=== PATIENT | female | born 1995 | race Two or more races ===

== ENCOUNTER 2024-03-26 09:07 | Emergency (ER) | payer MEDICAID, SELFPAY ==
[2024-03-26 09:54] VITALS: BP 115/80; PULSE 100; RESP 20; TEMP 39.2; O2SAT 97; BMI 39.4
[2024-03-26 10:28] VITALS: TEMP 39.2
[2024-03-26] MEDS: ACETAMINOPHEN 500 MG TABLET 1000 MG PO (10:28)
--- NOTE | 2024-03-26 11:25 | EDNOTE_ITS ---
<Statement entered by Mayda Diane MD - 04/01/24 17:56> As co-signing physician, I was present and available for consult prn. I concur with the plan and care as documented by the midlevel provider. ED Fever RME/HPI General Chief Complaint: Fever Stated Complaint: Fever, MATT, body aches, SOB, vomiting Time Seen by Provider: 03/26/24 09:33 Source: patient Arrival date/time: 03/26/24 09:07 This is a 28-year-old female who presented to the emergency department complaints of flulike symptoms. Complaint of fever, headache body aches vomiting. Patient did not attempt any interventions or take any OTC medications prior to ED visit. Patient denies any other associated symptoms or aggravating factors. No modifying factors, no radiation, no migration. Positive sick contacts at home. Mode of arrival: ambulatory Limitations: no limitations Related Data Previous Rx's ?Medication ?Instructions ?Recorded epinephrine 0.3 mg/0.3 mL 0.3 ml subcut .x1 PRN 07/07/23 injection, auto-injector (EpiPen hypersensitivity reaction #2 ea 2-Nitin) acetaminophen-caffeine 500 mg-65 1 tab PO Q6H PRN pain #30 tabs 01/07/24 mg tablet (Excedrin Tension Headache) acetaminophen 325 mg tablet 650 mg (2 x 325 mg) PO Q6H PRN 03/26/24 (Tylenol) fever or pain #30 tabs oseltamivir 75 mg capsule (Tamiflu) 75 mg PO BID 5 days #10 caps 03/26/24 Allergies Allergy/AdvReac Type Severity Reaction Status Date / Time hydromorphone Allergy Severe Anaphylaxis Verified 01/07/24 13:35 ketorolac Allergy Severe Anaphylaxis Verified 01/07/24 13:35 meperidine Allergy Severe Anaphylaxis Verified 01/07/24 13:35 Review of Systems Review of Systems Systems Reviewed: All systems reviewed, normal except as documented Narrative Review of Systems: Gen: + fever, no chills, no weight loss EYES: No discharge, no visual changes, no pain HEENT: No ear pain, +nasal congestion, no sore throat PULM: No shortness of breath, ++ough, no congestion CV: No chest pain, no dyspnea on exertion, no palpitations GI: No nausea, ++ vomiting, no diarrhea, no pain, no constipation : No frequency, no urgency,? no dysuria Musc/skel: No joint pain, no back pain Skin: No rash? Psyc: No hallucinations, no depression Heme/Lymph: No easy bleeding or bruising tendencies Neuro: No weakness, no headache Physical Exam Narrative Physical exam: General: 28y old female Sittiing in Exam table in no acute distress, answering questions appropriately HENT: normocephalic, atraumatic, EOMI, PERRLA, moist mucous membranes Chest: chest wall is nontender Cardiac: regular rate and rhythm, normal S1 and S2, no murmurs, rubs, or gallops, capillary refill ?2 seconds Pulmonary: clear to auscultation bilaterally, no wheezing, crackles, or rhonchi Abdominal: active bowel sounds, soft, nontender, nondistended Neuro: A&OX3, CN II-XII intact, sensation grossly intact bilaterally in UE and LE. Skin: no rashes, no ecchymosis Ext: no lower extremity edema General Limitations: no limitations General appearance: alert and in no apparent distress Head Head exam: atraumatic Eye Eye exam: Present normal appearance, PERRL and EOMI ENT ENT exam: Present normal exam, normal oropharynx and mucous membranes moist Neck Neck exam: Present normal inspection, full ROM and trachea midline Chest Chest inspection: Present normal inspection and symmetric chest wall rise Respiratory Respiratory exam: Present normal lung sounds bilaterally Cardiovascular Cardiovascular exam: Present regular rate, normal rhythm and normal heart sounds Abdominal Exam Abdominal exam: Present soft and normal bowel sounds; Absent distention, tenderness or guarding Extremities Exam Extremities exam: Present normal inspection and full ROM Back Exam Back exam: Present normal inspection and full ROM Neurological Exam Neurological exam: Present alert, oriented X3 and CN II-XII intact Psychiatric Psychiatric exam: Present normal affect and normal mood Skin Skin exam: Present warm, dry, intact and normal color ED Exam General Limitations: Present no limitations General appearance: Present alert and in no apparent distress Head Head exam: Present atraumatic Eye Eye exam: Present normal appearance, PERRL and EOMI ENT ENT exam: Present normal exam, normal oropharynx and mucous membranes moist Neck Neck exam: Present normal inspection, full ROM and trachea midline Chest Chest inspection: Present normal inspection and symmetric chest wall rise Respiratory Respiratory exam: Present normal lung sounds bilaterally Cardiovascular Cardiovascular exam: Present regular rate, normal rhythm and normal heart sounds Abdominal Exam Abdominal exam: Present soft and normal bowel sounds; Absent distention, tenderness or guarding Extremities Exam Extremities exam: Present normal inspection and full ROM Back Exam Back exam: Present normal inspection and full ROM Neurological Exam Neurological exam: Present alert, oriented X3 and CN II-XII intact Psychiatric Psychiatric exam: Present normal affect and normal mood Skin Skin exam: Present warm, dry, intact and normal color Course Quality Measures none Orders Category Date Time Status Bedside COVID-19 Antigen Test NOW Care 03/26/24 10:06 Completed Bedside Influenza A&B Antigen Test NOW Care 03/26/24 10:06 Completed Acetaminophen Tab [Tylenol ES Tab] Med 03/26/24 10:06 Discontinued 1,000 mg PO X1 ONE Vital Signs Vital signs: Vital Signs Temperature 102.5 F H 03/26/24 09:54 Pulse Rate 100 03/26/24 09:54 Respiratory Rate 20 03/26/24 09:54 Blood Pressure 115/80 03/26/24 09:54 Pulse Oximetry (%) 97 03/26/24 09:54 Oxygen Delivery Method Room Air 03/26/24 09:54 Fever MDM Narrative MDM Narrative:: Patient presents with symptoms and exam consistent with influenza. The patient is young, healthy, and is not a patient that is at high risk for developing influenza complications.? Patient is non-toxic appearing, appears to be well- hydrated and is breathing comfortably, without respiratory distress. Doubt pneumonia given lungs CTAB. Patient is appropriate for outpatient management with anti-pyretics and supportive care. Patient is comfortable with plan. Patient to follow up with PMD in 2 days. Strict return to ED precautions given. ?Patient verbalized understanding. Patient data External records reviewed:: [facility] previous records Clinical information provided by:: patient Social determinants that could affect healthcare access:: none Patient has the following chronic illnesses:: none How is presenting disease/condition affected by chronic disease/condition?: no chronic disease Evaluation data The following diagnostics were reviewed and interpreted by me:: lab results Lab and/or radiology exams considered but not ordered:: Considered x-ray however CTAB Interpretation Summary: +Influenza A Medications / Prescriptions Medications or Prescriptions considered but not ordered:: none Medication administrations:: Medication Administration History Discontinued Medications Acetaminophen (Acetaminophen 500 Mg Tablet) 1,000 mg PO X1 ONE Stop: 03/26/24 10:07 Last Admin: 03/26/24 10:28 Dose: 1,000 mg Documented By: ED all meds administered and effective Consultations Consultation(s) initiated? (list below): No Diagnosis Fever Differential Diagnosis: influenza Most likely diagnosis given after review of the tests above:: Influenza Admission Indicated Admission indicated?: not indicated Explain why admission is indicated or not indicated:: none Admission Request Was there a request for admission?: No Disposition Plan Disposition Plan: Discharge Discharge Attestation Discharge Attestation: The patient and all family members were given an opportunity to ask questions and understood the discharge instructions. Discharge instructions specifically effects, indications for sooner follow up or return to the emergency department, and the expected course of current diagnosis. Patient condition: Stable Discharge Plan Plan Patient Disposition: HOME (Self Care) Patient condition on transfer: Stable Prescriptions/Referrals Prescriptions/Med Rec: New acetaminophen [Tylenol] 325 mg tablet 650 mg PO Q6H PRN (Reason: fever or pain) Qty: 30 0RF oseltamivir [Tamiflu] 75 mg capsule 75 mg PO BID 5 Days Qty: 10 0RF No Action epinephrine [EpiPen 2-Nitin] 0.3 mg/0.3 mL auto-injector 0.3 ml subcut .x1 PRN (Reason: hypersensitivity reaction) Qty: 2 0RF Excedrin Tension Headache 500-65 mg tablet 1 tab PO Q6H PRN (Reason: pain) Qty: 30 0RF Referrals: Josefina Castro MD [Primary Care Provider] - In 1 week Problem List Clinical Impression: Influenza Patient/Caregiver Discharge Instructions Discharge Activity: activity as tolerated Education Materials: ED Influenza (Adult) Additional Instructions: Your rapid influenza test was positive. Start Tamiflu, antipyretics to pharmacy. 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 Please follow-up with your clinic 3-day follow-up. If you develop any type of respiratory distress or change in condition please go immediately to nearest emergency department Print Language: Irish Stand Alone Forms: Katelin Award Info., Work/School Release, Patient Portal Info Letter PA/DEWEY Supervising Physician PA/[employer] Supervising Physician: dr. Diane
== END 2024-03-26 11:44 | disposition home or self-care (01) ==
PROVIDERS: Emergency Provider Emergency Medicine; PCP Family Medicine
DX: J10.1 Influenza due to other identified influenza virus with other respiratory manifestations (principal)
CPT/HCPCS: 87400; 87811; 99283; A9270

== ENCOUNTER 2024-04-02 07:20 | Emergency (ER) | payer MEDICAID, SELFPAY ==
[2024-04-02 08:15] VITALS: BP 107/73; PULSE 81; RESP 16; TEMP 36.8; O2SAT 98; BMI 38.4
--- NOTE | 2024-04-02 09:19 | XR_ITS ---
Examination: PA lateral chest 2 views TECHNIQUE: Upright PA lateral chest 2 views Exam date and time: April 02, 2024 0927 hours Comparison July 05, 2023 INDICATIONS: Difficulty breathing beginning 4 days ago. FINDINGS: Subtle opacity left base retrocardiac Right lung clear Normal heart size IMPRESSION: Early pneumonia left base
--- NOTE | 2024-04-02 09:19 | EDNOTE_ITS ---
<Statement entered by Mayda Diane MD - 04/03/24 06:46> As co-signing physician, I was present and available for consult prn. I concur with the plan and care as documented by the midlevel provider. ED SOB =RME/HPI General Chief Complaint: Shortness of Breath/Dyspnea Stated Complaint: DIFF BREATHING/LUNG PAIN FOR 3 DAYS Time Seen by Provider: 04/02/24 10:12 Arrival date/time: 04/02/24 07:20 RME / HPI RME / HPI Narrative: 28-year-old female patient presents emergency department with complaint of shortness of breath for the past 1 week but has worsened in the last 3 days. She denies tobacco use she denies any alleviating or aggravating factors. She denies sick contacts or recent travel. Related Data Previous Rx's ?Medication ?Instructions ?Recorded epinephrine 0.3 mg/0.3 mL 0.3 ml subcut .x1 PRN 07/07/23 injection, auto-injector (EpiPen hypersensitivity reaction #2 ea 2-Nitin) acetaminophen-caffeine 500 mg-65 1 tab PO Q6H PRN pain #30 tabs 01/07/24 mg tablet (Excedrin Tension Headache) acetaminophen 325 mg tablet 650 mg (2 x 325 mg) PO Q6H PRN 03/26/24 (Tylenol) fever or pain #30 tabs albuterol sulfate 90 mcg/actuation 2 puff inhalation Q6H PRN 04/02/24 aerosol inhaler shortness of breath or wheezing #8.5 grams azithromycin 250 mg tablet See Rx Instructions PO .COMPLEX #6 04/02/24 (Zithromax) tabs prednisone 50 mg tablet 50 mg PO QAM 5 days #5 tabs 04/02/24 Allergies Allergy/AdvReac Type Severity Reaction Status Date / Time hydromorphone Allergy Severe Anaphylaxis Verified 04/02/24 07:23 ketorolac Allergy Severe Anaphylaxis Verified 04/02/24 07:23 meperidine Allergy Severe Anaphylaxis Verified 04/02/24 07:23 Review of Systems Review of Systems Systems Reviewed: All systems reviewed, normal except as documented Constitutional Constitutional: Reports system reviewed and no additional complaints, except as documented ENT Ears, Nose, Mouth, and Throat: Reports system reviewed and no additional complaints, except as documented Cardiovascular Cardiovascular: Reports system reviewed and no additional complaints, except as documented and Reports dyspnea Respiratory Respiratory: Reports cough and Reports dyspnea Musculoskeletal Musculoskeletal: Reports system reviewed and no additional complaints, except as documented Neurologic Neurologic: Reports system reviewed and no additional complaints, except as documented ED Exam General General appearance: Present alert and in no apparent distress Head Head exam: Present atraumatic and normocephalic Eye Eye exam: Present normal appearance, PERRL and EOMI ENT ENT exam: Present normal exam and normal oropharynx Chest Chest inspection: Present normal inspection and symmetric chest wall rise Respiratory Respiratory exam: Present wheezes; Absent accessory muscle use or prolonged expiratory phase Cardiovascular Cardiovascular exam: Present regular rate and normal rhythm Extremities Exam Extremities exam: Present normal inspection and full ROM Course Quality Measures none Orders Category Date Time Status XR chest 2V Stat Exams 04/02/24 09:19 Completed Albuterol/Ipratr Rt Katheryn [Duoneb Rt Katheryn] Med 04/02/24 09:19 Discontinued 3 ml INH X1 ONE Albuterol/Ipratr Rt Katheryn [Duoneb Rt Katheryn] Med 04/02/24 09:24 Discontinued 3 ml INH X1 ONE dexAMETHasone TAB [Decadron Tab] Med 04/02/24 09:19 Discontinued 10 mg PO X1 ONE Vital Signs Vital signs: Vital Signs Temperature 98.2 F 04/02/24 08:15 Pulse Rate 81 04/02/24 08:15 Respiratory Rate 16 04/02/24 08:15 Blood Pressure 107/73 04/02/24 08:15 Pulse Oximetry (%) 98 04/02/24 08:15 Oxygen Delivery Method Room Air 04/02/24 08:15 Shortness of Breath / Dyspnea MDM Narrative MDM Narrative:: 28-year-old patient presents emergency department with complaint of shortness of breath for the past 1 week but has worsened in the last 3 days. Patient denies any alleviating factors. Chest x-ray indicates PNA patient will be DC'd home with oral abx and inhaled steroids Patient data External records reviewed:: None Clinical information provided by:: none Social determinants that could affect healthcare access:: none Patient has the following chronic illnesses:: na How is presenting disease/condition affected by chronic disease/condition?: no chronic disease Evaluation data The following diagnostics were reviewed and interpreted by me:: radiology exam(s) Lab and/or radiology exams considered but not ordered:: both considered and ordered Interpretation Summary: na Medications / Prescriptions Medications or Prescriptions considered but not ordered:: meds considered and ordered Medication administrations:: Medication Administration History Discontinued Medications Albuterol/Ipratropium (Albuterol/Ipratropium (Duoneb) Rt Katheryn 3 Ml Nebu) 3 ml INH X1 ONE Stop: 04/02/24 09:20 Last Admin: 04/02/24 09:36 Dose: 3 ml Documented By: ROSE MARY Albuterol/Ipratropium (Albuterol/Ipratropium (Duoneb) Rt Katheryn 3 Ml Nebu) 3 ml INH X1 ONE Stop: 04/02/24 09:25 Last Admin: 04/02/24 09:43 Dose: 3 ml Documented By: ROSE MARY Dexamethasone (Dexamethasone 4 Mg Tablet) 10 mg PO X1 ONE; Protocol Stop: 04/02/24 09:20 Last Admin: 04/02/24 09:59 Dose: 10 mg Documented By: MALLIKA per above Consultations Consultation(s) initiated? (list below): No Diagnosis Shortness of Breath Differential Diagnosis: acute exacerbation of chronic obstructive airways disease, congestive heart failure, community acquired p neumonia, asthma with exacerbation and pulmonary embolism Most likely diagnosis given after review of the tests above:: bronchospasm Admission Indicated Admission indicated?: not indicated Admission Request Was there a request for admission?: No Disposition Plan Disposition Plan: Discharge Discharge Attestation Discharge Attestation: The patient and all family members were given an opportunity to ask questions and understood the discharge instructions. Discharge instructions specifically effects, indications for sooner follow up or return to the emergency department, and the expected course of current diagnosis. Patient condition: Stable Discharge Plan Plan Patient Disposition: HOME (Self Care) Patient condition on transfer: Stable Prescriptions/Referrals Prescriptions/Med Rec: New albuterol sulfate 90 mcg/actuation HFA aerosol inhaler 2 puff inhalation Q6H PRN (Reason: shortness of breath or wheezing) Qty: 8.5 0RF prednisone 50 mg tablet 50 mg PO QAM 5 Days Qty: 5 0RF azithromycin [Zithromax] 250 mg tablet See Rx Instructions .ROUTE .COMPLEX Qty: 6 0RF Rx Instructions: For 250 mg dose pack: take 500 mg today (day 1), then 250 mg for 4 days (days 2-5) No Action epinephrine [EpiPen 2-Nitin] 0.3 mg/0.3 mL auto-injector 0.3 ml subcut .x1 PRN (Reason: hypersensitivity reaction) Qty: 2 0RF Excedrin Tension Headache 500-65 mg tablet 1 tab PO Q6H PRN (Reason: pain) Qty: 30 0RF acetaminophen [Tylenol] 325 mg tablet 650 mg PO Q6H PRN (Reason: fever or pain) Qty: 30 0RF Problem List Clinical Impression: Bronchospasm with bronchitis, acute, Pneumonia Patient/Caregiver Discharge Instructions Education Materials: ED Bronchitis with Wheezing (Adult), ED Pneumonia (Adult) Print Language: Ghanaian Stand Alone Forms: Katelin Award Info., Patient Portal Info Letter
[2024-04-02] MEDS: ALBUTEROL/IPRATROPIUM (Duoneb) RT SOL 3 ML NEBU INH ×2 (09:36→09:43)
[2024-04-02 09:39] VITALS: PULSE 82; RESP 16; O2SAT 99
[2024-04-02 09:44] VITALS: PULSE 86; RESP 18; O2SAT 99
[2024-04-02] MEDS: dexAMETHasone 4 MG TABLET 10 MG PO (09:59)
[2024-04-02] MEDS: cefTRIAXone 1,000 MG, LIDOCAINE 1% 20 ML 2.1 ML IM (12:20)
== END 2024-04-02 13:25 | disposition home or self-care (01) ==
PROVIDERS: Emergency Provider Emergency Medicine; PCP Family Medicine
DX: J20.9 Acute bronchitis, unspecified (principal); J18.9 Pneumonia, unspecified organism
CPT/HCPCS: 71046; 94640; 96372; 99283; A9270; J0696; J3490; J8540

== ENCOUNTER → 2024-05-20 | Outpatient (CLI) | payer MEDICAID, SELFPAY ==
--- NOTE | 2024-05-20 12:23 | XR_ITS ---
Examination: PA lateral chest 2 views TECHNIQUE: Upright PA lateral chest 2 views Exam date and time: May 20, 2024 1234 hours Comparison April 02, 2024 INDICATIONS: Shortness of breath dizziness numbness in the extremities 3 months FINDINGS: Normal heart size. No pneumonia or pulmonary edema The osseous structures are intact IMPRESSION: No active disease
== END | disposition home or self-care (01) ==
DX: R06.02 Shortness of breath (principal)
CPT/HCPCS: 71046

== ENCOUNTER 2024-08-07 11:27 | Emergency (ER) | payer MEDICAID, SELFPAY ==
[2024-08-07 12:05] VITALS: BP 120/77; PULSE 101; RESP 22; TEMP 36.8; O2SAT 96; BMI 39.9
--- NOTE | 2024-08-07 12:11 | XR_ITS ---
Examination: PA lateral chest 2 views TECHNIQUE: Upright PA lateral chest 2 views Exam date and time: August 07, 2024 1242 hours INDICATIONS: Coughing fever beginning 2 days ago. FINDINGS: Accentuation basilar bronchovascular markings Normal heart size No lobar pneumonia IMPRESSION: Basilar bronchitis pattern
--- NOTE | 2024-08-07 12:11 | PD.EDSOB ---
ED SOB =RME/HPI General Chief Complaint: Shortness of Breath/Dyspnea Stated Complaint: Shortness of breath and headache Source: patient Arrival date/time: 08/07/24 11:27 28-year-old female with no known medical history presents to the emergency room with a chief complaint of shortness of breath, headache x 3 days. Patient states she has really bad allergies has seen her primary care provider but nothing has worked. Mode of arrival: ambulatory Limitations: no limitations Related Data Previous Rx's ?Medication ?Instructions ?Recorded epinephrine 0.3 mg/0.3 mL 0.3 ml subcut .x1 PRN 07/07/23 injection, auto-injector (EpiPen hypersensitivity reaction #2 ea 2-Nitin) acetaminophen-caffeine 500 mg-65 1 tab PO Q6H PRN pain #30 tabs 01/07/24 mg tablet (Excedrin Tension Headache) acetaminophen 325 mg tablet 650 mg (2 x 325 mg) PO Q6H PRN 03/26/24 (Tylenol) fever or pain #30 tabs albuterol sulfate 90 mcg/actuation 2 puff inhalation Q6H PRN 04/02/24 aerosol inhaler shortness of breath or wheezing #8.5 grams azithromycin 250 mg tablet See Rx Instructions PO .COMPLEX #6 04/02/24 (Zithromax) tabs Allergies Allergy/AdvReac Type Severity Reaction Status Date / Time hydromorphone Allergy Severe Anaphylaxis Verified 08/07/24 11:31 ketorolac Allergy Severe Anaphylaxis Verified 08/07/24 11:31 meperidine Allergy Severe Anaphylaxis Verified 08/07/24 11:31 Review of Systems Review of Systems Systems Reviewed: All systems reviewed, normal except as documented Constitutional Constitutional: Reports system reviewed and no additional complaints, except as documented, Denies fatigue, Denies fever(s), Reports headache(s) and Reports weakness Eyes Eyes: Reports system reviewed and no additional complaints, except as documented, Denies blurry vision and Denies change in vision ENT Ears, Nose, Mouth, and Throat: Reports system reviewed and no additional complaints, except as documented, Denies otalgia, Reports headache(s), Denies nasal congestion, Denies throat swelling and Denies vertigo Cardiovascular Cardiovascular: Reports system reviewed and no additional complaints, except as documented, Denies chest pain, Reports dyspnea and Denies dyspnea on exertion Respiratory Respiratory: Reports system reviewed and no additional complaints, except as documented, Reports chest congestion, Reports cough, Reports dyspnea, Denies dyspnea on exertion and Denies wheezing Gastrointestinal Gastrointestinal: Reports system reviewed and no additional complaints, except as documented, Denies abdominal pain, Denies cramping, Denies nausea and Denies vomiting Genitourinary Genitourinary: Reports system reviewed and no additional complaints, except as documented Musculoskeletal Musculoskeletal: Reports system reviewed and no additional complaints, except as documented and Denies back pain Integumentary/Breasts Skin/Breast: Reports system reviewed and no additional complaints, except as documented and Denies wounds Neurologic Neurologic: Reports system reviewed and no additional complaints, except as documented, Denies confusion, Reports headache(s), Denies lack of coordination, Denies vertigo and Reports weakness Psychiatric Psychiatric: Reports system reviewed and no additional complaints, except as documented, Denies anxiety, Denies confusion, Denies depression, Denies paranoia, Denies suicidal ideation and Denies tactile hallucinations Endocrine Endocrine: Reports system reviewed and no additional complaints, except as documented and Denies fatigue Hematologic/Lymphatic Hematologic/Lymphatic: Reports system reviewed and no additional complaints, except as documented and Denies lymphadenopathy Allergic/Immunologic Allergic/Immunologic: Reports system reviewed and no additional complaints, except as documented, Denies throat swelling, Denies urticaria and Denies wheezing Past Medical History Past Medical History NEUROLOGIC: Negative Neurological Disorders CARDIAC: Negative Cardiac Disorders ED Exam General Limitations: Present no limitations General appearance: Present alert and in no apparent distress Head Head exam: Present atraumatic Eye Eye exam: Present normal appearance, PERRL and EOMI ENT ENT exam: Present normal exam, normal oropharynx and mucous membranes moist Neck Neck exam: Present normal inspection, full ROM and trachea midline Chest Chest inspection: Present normal inspection and symmetric chest wall rise Respiratory Respiratory exam: Present normal lung sounds bilaterally; Absent respiratory distress, wheezes, stridor, accessory muscle use or prolonged expiratory phase Cardiovascular Cardiovascular exam: Present regular rate, normal rhythm and normal heart sounds Abdominal Exam Abdominal exam: Present soft and normal bowel sounds Extremities Exam Extremities exam: Present normal inspection and full ROM Back Exam Back exam: Present normal inspection and full ROM Neurological Exam Neurological exam: Present alert, oriented X3 and CN II-XII intact Psychiatric Psychiatric exam: Present normal affect and normal mood Skin Skin exam: Present warm, dry, intact and normal color Course Quality Measures none Orders Category Date Time Status Bedside COVID-19 Antigen Test NOW Care 08/07/24 12:11 Completed Bedside Influenza A&B Antigen Test NOW Care 08/07/24 12:11 Completed XR chest 2V Stat Exams 08/07/24 12:11 Completed Acetaminophen Tab [Tylenol Tab] Med 08/07/24 12:12 Discontinued 650 mg PO X1 ONE Dexamethasone Inj [Decadron Inj] Med 08/07/24 12:12 Discontinued 10 mg PO X1 ONE DiphenhydrAMINE [Benadryl] Med 08/07/24 12:12 Discontinued 25 mg PO X1 ONE Famotidine [Pepcid] Med 08/07/24 12:12 Discontinued 20 mg PO X1 ONE Vital Signs Vital signs: Vital Signs Temperature 98.2 F 08/07/24 12:05 Pulse Rate 101 H 08/07/24 12:05 Respiratory Rate 22 H 08/07/24 12:05 Blood Pressure 120/77 08/07/24 12:05 Pulse Oximetry (%) 96 08/07/24 12:05 Oxygen Delivery Method Room Air 08/07/24 12:05 O2 saturation 96% within normal limits Shortness of Breath / Dyspnea MDM Narrative MDM Narrative:: 28-year-old female with no known medical history presents to the emergency room with a chief complaint of shortness of breath, headache x 3 days. Patient states she has really bad allergies has seen her primary care provider but nothing has worked. Patient is hemodynamically stable in no apparent distress. There is no tachycardia no tachypnea and O2 saturation is 96% on room air. Patient is afebrile Chest x-ray was negative for any pneumonic infiltrates but does show bronchitis. The patient was given antihistamines and during reevaluation the patient states that her symptoms have significantly improved and she is not short of breath and feels a lot better. Patient was discharged and educated to follow-up with primary care provider in the next 24 to 48 hours and return to the emergency room for any evidence of worsening signs or symptoms Patient data External records reviewed:: [facility] previous records Clinical information provided by:: patient Social determinants that could affect healthcare access:: none Patient has the following chronic illnesses:: No chronic illness How is presenting disease/condition affected by chronic disease/condition?: no chronic disease Evaluation data The following diagnostics were reviewed and interpreted by me:: lab results and radiology exam(s) Lab and/or radiology exams considered but not ordered:: Labs radiology exams considered and ordered Interpretation Summary: Chest [id number]: Accentuation basilar bronchovascular markings Normal heart size No lobar pneumonia IMPRESSION: Basilar bronchitis pattern Medications / Prescriptions Medications or Prescriptions considered but not ordered:: Medication given Medication administrations:: Medication Administration History Discontinued Medications Acetaminophen (Acetaminophen 325 Mg Tablet) 650 mg PO X1 ONE Stop: 08/07/24 12:13 Last Admin: 08/07/24 12:56 Dose: 650 mg Documented By: ER Dexamethasone Sodium Phosphate (Dexamethasone Sod Phos Inj 10 Mg/Ml Vial) 10 mg PO X1 ONE Stop: 08/07/24 12:13 Last Admin: 08/07/24 12:57 Dose: 10 mg Documented By: ER Comments: given PO as ordered Diphenhydramine HCl (Diphenhydramine Elix 25 Mg/10 Ml Udc) 25 mg PO X1 ONE Stop: 08/07/24 12:13 Last Admin: 08/07/24 12:57 Dose: 25 mg Documented By: ER Famotidine (Famotidine 20 Mg Tablet) 20 mg PO X1 ONE Stop: 08/07/24 12:13 Last Admin: 08/07/24 12:57 Dose: 20 mg Documented By: ER Medication given Consultations Consultation(s) initiated? (list below): No Diagnosis Shortness of Breath Differential Diagnosis: community acquired pneumonia, asthma with exacerbation and other (Bronchitis) Most likely diagnosis given after review of the tests above:: Bronchitis Admission Indicated Admission indicated?: not indicated Admission Request Was there a request for admission?: No Disposition Plan Disposition Plan: Discharge Discharge Attestation Discharge Attestation: The patient and all family members were given an opportunity to ask questions and understood the discharge instructions. Discharge instructions specifically effects, indications for sooner follow up or return to the emergency department, and the expected course of current diagnosis. Patient condition: Stable Discharge Plan Plan Patient Disposition: HOME (Self Care) Discharge Disposition comment: Stable Prescriptions/Referrals Prescriptions/Med Rec: No Action epinephrine [EpiPen 2-Nitin] 0.3 mg/0.3 mL auto-injector 0.3 ml subcut .x1 PRN (Reason: hypersensitivity reaction) Qty: 2 0RF Excedrin Tension Headache 500-65 mg tablet 1 tab PO Q6H PRN (Reason: pain) Qty: 30 0RF acetaminophen [Tylenol] 325 mg tablet 650 mg PO Q6H PRN (Reason: fever or pain) Qty: 30 0RF albuterol sulfate 90 mcg/actuation HFA aerosol inhaler 2 puff inhalation Q6H PRN (Reason: shortness of breath or wheezing) Qty: 8.5 0RF azithromycin [Zithromax] 250 mg tablet See Rx Instructions .ROUTE .COMPLEX Qty: 6 0RF Rx Instructions: For 250 mg dose pack: take 500 mg today (day 1), then 250 mg for 4 days (days 2-5) Problem List Clinical Impression: Bronchitis Patient/Caregiver Discharge Instructions Education Materials: ED Bronchitis, No Antibiotic (Adult) Additional Instructions: Please follow-up with your primary care provider in the next 24 to 48 hours. For any evidence of worsening signs or symptoms return to emergency room immediately Print Language: Divehi Stand Alone Forms: Katelin Award Info., Patient Portal Info Letter PA/GRAVEL INSPECTOR Supervising Physician PA/GRAVEL INSPECTOR Supervising Physician: Dr. Carrillo
[2024-08-07] MEDS: ACETAMINOPHEN 325 MG TABLET 650 MG PO (12:56)
[2024-08-07] MEDS: DiphenhydrAMINE ELIX 25 MG/10 ML UDC PO (12:57)
[2024-08-07] MEDS: FAMOTIDINE 20 MG TABLET PO (12:57)
[2024-08-07] MEDS: DEXAMETHASONE SOD PHOS INJ 10 MG/ML VIAL PO (12:57)
== END 2024-08-07 14:57 | disposition home or self-care (01) ==
LOC: SERX 14:56
PROVIDERS: Emergency Provider Family Medicine
DX: J40 Bronchitis, not specified as acute or chronic (principal)
CPT/HCPCS: 71046; 87400; 87811; 99283; J1100; A9270

== ENCOUNTER 2024-09-10 13:53 | Emergency (ER) | payer MEDICAID, SELFPAY ==
[2024-09-10 13:55] VITALS: BMI 39.0
[2024-09-10 14:33] VITALS: BP 128/63; PULSE 63; RESP 18; TEMP 36.8; O2SAT 99
--- NOTE | 2024-09-10 14:48 | PD.EDEYE ---
ED Eye Problem RME/HPI General Chief complaint: Eye Problems Stated complaint: EYES BURNED/SWOLLEN; VISION BLURRY X 1 HR Time Seen by Provider: 09/10/24 14:04 Arrival date/time: 09/10/24 13:53 Limitations: no limitations RME / HPI RME / HPI Narrative: 28-year-old female with no reported PMHx presents for evaluation of eye discomfort x 1 hour. Patient reports that she was walking into the grocery store when her eyes began to burn and water. She describes it as she was walking through the grocery store they became progressively itchy. She notes intermittently blurred vision which she attributes to her watery eyes. She states that she has been rubbing her eyes and feels they are swollen at this time. She notes rhinorrhea and cough for the last several days. She reports prior similar symptoms which she attributes to seasonal allergies. Denies wheezing, shortness of breath, facial swelling, tongue swelling, difficulty swallowing, chest pain. Denies known exposure to chemicals. MD chief complaint: eye redness Onset (ago): hour(s) Onset description: gradual Duration: constant Location: both eyes Eye Symptoms: burning, redness, itching, discharge and blurry vision Place: street/outdoors If Pain, Quality: burning Treatments Prior to Arrival: none Related Data Previous Rx's ?Medication ?Instructions ?Recorded epinephrine 0.3 mg/0.3 mL 0.3 ml subcut .x1 PRN 07/07/23 injection, auto-injector (EpiPen hypersensitivity reaction #2 ea 2-Nitin) acetaminophen-caffeine 500 mg-65 1 tab PO Q6H PRN pain #30 tabs 01/07/24 mg tablet (Excedrin Tension Headache) acetaminophen 325 mg tablet 650 mg (2 x 325 mg) PO Q6H PRN 03/26/24 (Tylenol) fever or pain #30 tabs albuterol sulfate 90 mcg/actuation 2 puff inhalation Q6H PRN 04/02/24 aerosol inhaler shortness of breath or wheezing #8.5 grams azithromycin 250 mg tablet See Rx Instructions PO .COMPLEX #6 04/02/24 (Zithromax) tabs loratadine 10 mg capsule 10 mg PO QDAY 30 days #30 caps 09/10/24 Allergies Allergy/AdvReac Type Severity Reaction Status Date / Time hydromorphone Allergy Severe Anaphylaxis Verified 09/10/24 13:57 ketorolac Allergy Severe Anaphylaxis Verified 09/10/24 13:57 meperidine Allergy Severe Anaphylaxis Verified 09/10/24 13:57 Review of Systems Constitutional Constitutional: Denies body ache(s), Denies chills, Denies fatigue, Denies fever(s), Denies headache(s), Denies lethargy and Denies weakness Eyes Eyes: Denies blind spots, Reports blurry vision, Reports itchy eyes, Denies loss of peripheral vision, Denies loss of vision, Denies other visual disturbances and Denies requires corrective lenses ENT Ears, Nose, Mouth, and Throat: Denies dizziness, Denies otalgia, Denies facial pain, Denies headache(s), Denies hearing loss, Denies lip swelling, Denies mouth pain, Denies neck pain, Denies odynophagia, Denies post nasal drip, Denies throat swelling, Denies tongue swelling and Denies vertigo Cardiovascular Cardiovascular: Denies chest pain, Denies dyspnea, Denies leg edema and Denies lightheadedness Respiratory Respiratory: Denies cough, Denies dyspnea, Denies stridor and Denies wheezing Gastrointestinal Gastrointestinal: Denies abdominal pain, Denies nausea, Denies odynophagia and Denies vomiting Musculoskeletal Musculoskeletal: Denies abnormal gait, Denies myalgias and Denies neck pain Integumentary/Breasts Skin/Breast: Denies lesions, Denies rash and Denies wounds Neurologic Neurologic: Denies abnormal gait, Denies dizziness, Denies headache(s), Denies loss of vision, Denies vertigo and Denies weakness Endocrine Endocrine: Denies fatigue Allergic/Immunologic Allergic/Immunologic: Reports itchy eyes, Denies lip swelling, Reports seasonal rhinorrhea, Denies throat swelling, Denies tongue swelling, Denies urticaria and Denies wheezing Past Medical History Past Medical History NEUROLOGIC: Negative Neurological Disorders or Seizures CARDIAC: Negative Cardiac Disorders, Congestive Heart Failure, Hypertension or Hypotension RESPIRATORY: Negative Chronic Obstructive Pulmonary Disease (COPD) or Asthma GASTROINTESTINAL: Positive Gastrointestinal Disorders and Obesity; Negative Gastroesophageal Reflux Disease GENITOURINARY: Positive Genitourinary Disorders and Kidney Stones; Negative Renal Disease REPRODUCTIVE: Positive Previous Pregnancies (9) MUSCULOSKELETAL: Negative Musculoskeletal Disorders or Scoliosis ENDOCRINE: Negative Endocrine Disorders, Diabetes Mellitus Type 1 or Diabetes Mellitus Type 2 HEMATOLOGIC: Positive Blood Disorders and Anemia; Negative Sickle Cell Disease PSYCHO/SOCIAL: Negative Depression, Anxiety or Depression OTHER HISTORY: Positive Blood Transfusions; Negative Hospitalization, Autoimmune Disease, Shingles, Blood Transfusion Reaction, Anesthesia Reactions, MRSA, VRSA, Vancomycin-Resistant Enterococci, Chicken Pox or Cancer Family History FAMILY HISTORY: Positive Family Cardiac Disorders; Negative Family Psychiatric Problems, Family Respiratory Disorders, Family Gastrointestinal Problems, Family Cancer, Family Surgery or Family Anesthesia Reaction Surgical History SURGICAL: Negative Section Social History SMOKING STATUS: Never smoker SECOND HAND EXPOSURE: Yes SUBSTANCE USE: does not use ED Exam General Limitations: Present no limitations General appearance: Present alert and in no apparent distress Head Head exam: Present atraumatic and normocephalic Eye Eye exam: Present normal appearance, PERRL, EOMI and conjunctival injection; Absent periorbital swelling or periorbital tenderness ENT ENT exam: Present normal exam, normal oropharynx, mucous membranes moist and TM's normal bilaterally Neck Neck exam: Present normal inspection, full ROM and trachea midline Chest Chest inspection: Present normal inspection and symmetric chest wall rise Respiratory Respiratory exam: Present normal lung sounds bilaterally; Absent respiratory distress, wheezes, stridor, accessory muscle use or prolonged expiratory phase Cardiovascular Cardiovascular exam: Present regular rate and +S1 Abdominal Exam Abdominal exam: Present soft; Absent distention Extremities Exam Extremities exam: Present normal inspection and full ROM Back Exam Back exam: Present normal inspection and full ROM Neurological Exam Neurological exam: Present alert and normal gait Psychiatric Psychiatric exam: Present normal affect Skin Skin exam: Present warm, dry, intact and normal color; Absent rash Course Quality Measures none Orders Category Date Time Status Dexamethasone Inj [Decadron Inj] Med 09/10/24 14:48 Discontinued 10 mg IM X1 ONE lorataDINE [Claritin] Med 09/10/24 14:48 Discontinued 10 mg PO X1 ONE Vital Signs Vital signs: Vital Signs Temperature 98.3 F 09/10/24 14:33 Pulse Rate 63 09/10/24 14:33 Respiratory Rate 18 09/10/24 14:33 Blood Pressure 128/63 09/10/24 14:33 Pulse Oximetry (%) 99 09/10/24 14:33 Oxygen Delivery Method Room Air 09/10/24 14:33 Pulse ox 99% on room air, within normal limits. Eye MDM Narrative MDM Narrative:: 28-year-old female presented for acute onset bilateral itching, burning, watering of eyes x 1 hour. Patient reported gradual onset outside. Vital signs reassuring. No angioedema, no stridor, no systemic symptoms therefore less concern for anaphylaxis at this time. No direct trauma reported therefore less concern for ocular mechanical injury such as corneal abrasion. More likely seasonal allergies. Patient was given dose of long-acting steroid which improved her symptoms. I advised her to start taking a loratadine daily for seasonal allergies and to return to the ED if her symptoms worsen, change, or return. Ultimately patient was discharged home with plan to follow-up with primary care within the next several days for reevaluation. Patient stable at time of discharge. Patient data External records reviewed:: [facility] previous records Clinical information provided by:: patient Social determinants that could affect healthcare access:: none Patient has the following chronic illnesses:: None reported. How is presenting disease/condition affected by chronic disease/condition?: no chronic disease Evaluation data The following diagnostics were reviewed and interpreted by me:: other (specify) Lab and/or radiology exams considered but not ordered:: Considered not ordered. Interpretation Summary: Considered not ordered. Medications / Prescriptions Medications or Prescriptions considered but not ordered:: Rx given. Medication administrations:: Medication Administration History Discontinued Medications Dexamethasone Sodium Phosphate (Dexamethasone Sod Phos Inj 10 Mg/Ml Vial) 10 mg IM X1 ONE Stop: 09/10/24 14:49 Last Admin: 09/10/24 15:00 Dose: 10 mg Documented By: NEREIDA Loratadine (Loratadine 10 Mg Tablet) 10 mg PO X1 ONE Stop: 09/10/24 14:49 Last Admin: 09/10/24 15:01 Dose: 10 mg Documented By: NEREIDA Rx given. Consultations Consultation(s) initiated? (list below): No Diagnosis Eye Problem Differential Diagnosis: corneal abrasion, conjunctivitis and other (Anaphylaxis, seasonal allergies, conjunctivitis.) Most likely diagnosis given after review of the tests above:: Seasonal allergies, bilateral eye irritation. Admission Indicated Admission indicated?: not indicated Admission Request Was there a request for admission?: No Disposition Plan Disposition Plan: Discharge Discharge Attestation Discharge Attestation: The patient and all family members were given an opportunity to ask questions and understood the discharge instructions. Discharge instructions specifically effects, indications for sooner follow up or return to the emergency department, and the expected course of current diagnosis. Patient condition: Stable Discharge Plan Plan Patient Disposition: HOME (Self Care) Discharge Disposition comment: stable Prescriptions/Referrals Prescriptions/Med Rec: New loratadine 10 mg capsule 10 mg PO QDAY 30 Days Qty: 30 0RF No Action epinephrine [EpiPen 2-Nitin] 0.3 mg/0.3 mL auto-injector 0.3 ml subcut .x1 PRN (Reason: hypersensitivity reaction) Qty: 2 0RF Excedrin Tension Headache 500-65 mg tablet 1 tab PO Q6H PRN (Reason: pain) Qty: 30 0RF acetaminophen [Tylenol] 325 mg tablet 650 mg PO Q6H PRN (Reason: fever or pain) Qty: 30 0RF albuterol sulfate 90 mcg/actuation HFA aerosol inhaler 2 puff inhalation Q6H PRN (Reason: shortness of breath or wheezing) Qty: 8.5 0RF azithromycin [Zithromax] 250 mg tablet See Rx Instructions .ROUTE .COMPLEX Qty: 6 0RF Rx Instructions: For 250 mg dose pack: take 500 mg today (day 1), then 250 mg for 4 days (days 2-5) Problem List Clinical Impression: Seasonal allergic reaction, Epiphora Impression comment: Take loratadine daily at night for the next x 30 days for seasonal allergies. Continue to monitor for worsening swelling, shortness of breath, wheezing, facial swelling and return to the ED if her symptoms worsen or change. Plan to follow-up with primary care within the next 2 to 3 days for reevaluation. Patient/Caregiver Discharge Instructions Education Materials: ED Allergy Seasonal (FAROESE) Print Language: Cuban Stand Alone Forms: Katelin Award Info., Patient Portal Info Letter PA/DEWEY Supervising Physician DAMIAN/DEWEY Supervising Physician: Dr. Holder
[2024-09-10] MEDS: DEXAMETHASONE SOD PHOS INJ 10 MG/ML VIAL IM (15:00)
[2024-09-10] MEDS: lorataDINE 10 MG TABLET PO (15:01)
== END 2024-09-10 15:15 | disposition home or self-care (01) ==
LOC: SERX 15:08
PROVIDERS: Emergency Provider Emergency Medicine
DX: T78.40XA Allergy, unspecified, initial encounter (principal); H04.203 Unspecified epiphora, bilateral
CPT/HCPCS: 96372; 99283; J1100; A9270

== ENCOUNTER 2024-09-10 21:06 | Emergency (ER) | payer MEDICAID, SELFPAY ==
[2024-09-10 21:11] VITALS: BP 145/88; PULSE 138; RESP 20; TEMP 37; O2SAT 95; BMI 39.0
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
[2024-09-10] MEDS: ACETAMINOPHEN 500 MG TABLET 1000 MG PO (21:18)
[2024-09-10 23:04] VITALS: BP 133/96; PULSE 115; RESP 17; O2SAT 96
== END 2024-09-10 23:07 | disposition home or self-care (01) ==
PROVIDERS: Emergency Provider Emergency Medicine
DX: S00.03XA Contusion of scalp, initial encounter (principal); Y09 Assault by unspecified means; M54.2 Cervicalgia; J32.0 Chronic maxillary sinusitis
CPT/HCPCS: 70450; 72125; 99284; A9270

== ENCOUNTER 2024-11-16 08:40 | Emergency (ER) | payer MEDICAID, SELFPAY ==
[2024-11-16 08:42] VITALS: BMI 38.7
[2024-11-16 08:51] VITALS: BP 118/83; PULSE 92; RESP 18; TEMP 36.7; O2SAT 97
--- NOTE | 2024-11-16 08:56 | XR_ITS ---
Examination: Shoulder,left, 3 views Technique: Shoulder AP internal rotation, AP external rotation, Y view shoulder, 3 views Exam date and time :November 16, 2024 0937 hours INDICATIONS: Patient fell today with into the left shoulder, left shoulder pain. FINDINGS: No shoulder fracture or dislocation No opaque foreign body IMPRESSION: No shoulder fracture or dislocation
--- NOTE | 2024-11-16 08:56 | XR_ITS ---
Examination: Lumbar spine 3 views Technique one AP lateral coned lateral lower lumbar spine 3 views Date and time: November 16, 2024 0944 hours INDICATIONS: Patient fell out of a chair today with injury to lower back, lower back pain. FINDINGS: Satisfactory alignment lumbar vertebral bodies No lumbar fracture 6 mm right renal calculus IMPRESSION: No lumbar fracture
--- NOTE | 2024-11-16 09:16 | EDNOTE_ITS ---
<Statement entered by Mayda Diane MD - 11/16/24 15:49> As co-signing physician, I was present and available for consult prn. I concur with the plan and care as documented by the midlevel provider. ED Back Injury Pain RME/HPI General Chief Complaint: Fall Stated Complaint: FALL; L) SHOULDER/BACK/FOOT; BLOODY URINE Time Seen by Provider: 11/16/24 08:53 Source: patient Arrival date/time: 11/16/24 08:40 29-year-old female with no known medical history presents to the emergency room with a chief complaint of left shoulder pain and lower lumbar pain after falling while trying to change a light bulb. Mode of arrival: ambulatory Limitations: no limitations Related Data Previous Rx's ?Medication ?Instructions ?Recorded epinephrine 0.3 mg/0.3 mL 0.3 ml subcut .x1 PRN injection, auto-injector (EpiPen hypersensitivity reac tion #2 ea 2-Nitin) acetaminophen-caffeine 500 mg-65 1 tab PO Q6H PRN pain #30 tabs 01/07/24 mg tablet (Excedrin Tension Headache) acetaminophen 325 mg tablet 650 mg (2 x 325 mg) PO Q6H PRN 03/26/24 (Tylenol) fever or pain #30 tabs albuterol sulfate 90 mcg/actuation 2 puff inhalation Q 6H PRN 04/02/24 aerosol inhaler shortness of breath or wheez ing #8.5 grams azithromycin 250 mg tablet See Rx Instructions PO .COM PLEX #6 04/02/24 (Zithromax) tabs Allergies Allergy/AdvReac Type Severity Reaction Status Date / Time No Known Allergies Allergy Verified 11/16/24 08:45 Review of Systems Review of Systems Systems Reviewed: All systems reviewed, normal except as documented Constitutional Constitutional: Reports system reviewed and no additional complaints, except as documented, Denies fatigue, Denies fever(s), Denies headache(s) and Denies weakness Eyes Eyes: Reports system reviewed and no additional complaints, except as documented, Denies blurry vision and Denies change in vision ENT Ears, Nose, Mouth, and Throat: Reports system reviewed and no additional complaints, except as documented, Denies otalgia, Denies headache(s), Denies nasal congestion, Denies throat swelling and Denies vertigo Cardiovascular Cardiovascular: Reports system reviewed and no additional complaints, except as documented, Denies chest pain, Denies dyspnea and Denies dyspnea on exertion Respiratory Respiratory: Reports system reviewed and no additional complaints, except as documented, Denies chest congestion, Denies cough, Denies dyspnea, Denies dyspnea on exertion and Denies wheezing Gastrointestinal Gastrointestinal: Reports system reviewed and no additional complaints, except as documented, Denies abdominal pain, Denies cramping, Denies nausea and Denies vomiting Genitourinary Genitourinary: Reports system reviewed and no additional complaints, except as documented Musculoskeletal Musculoskeletal: Reports system reviewed and no additional complaints, except as documented and Reports back pain Integumentary/Breasts Skin/Breast: Reports system reviewed and no additional complaints, except as documented and Denies wounds Neurologic Neurologic: Reports system reviewed and no additional complaints, except as documented, Denies confusion, Denies headache(s), Denies lack of coordination, Denies vertigo and Denies weakness Psychiatric Psychiatric: Reports system reviewed and no additional complaints, except as documented, Denies anxiety, Denies confusion, Denies depression, Denies paranoia, Denies suicidal ideation and Denies tactile hallucinations Endocrine Endocrine: Reports system reviewed and no additional complaints, except as documented and Denies fatigue Hematologic/Lymphatic Hematologic/Lymphatic: Reports system reviewed and no additional complaints, except as documented and Denies lymphadenopathy Allergic/Immunologic Allergic/Immunologic: Reports system reviewed and no additional complaints, except as documented, Denies throat swelling, Denies urticaria and Denies wheezing Past Medical History Past Medical History NEUROLOGIC: Negative Neurological Disorders or Seizures CARDIAC: Negative Cardiac Disorders, Congestive Heart Failure, Hypertension or Hypotension RESPIRATORY: Negative Chronic Obstructive Pulmonary Disease (COPD) or Asthma GASTROINTESTINAL: Positive Gastrointestinal Disorders and Obesity; Negative Gastroesophageal Reflux Disease GENITOURINARY: Positive Genitourinary Disorders and Kidney Stones; Negative Renal Disease REPRODUCTIVE: Positive Previous Pregnancies (9) MUSCULOSKELETAL: Negative Musculoskeletal Disorders or Scoliosis ENDOCRINE: Negative Endocrine Disorders, Diabetes Mellitus Type 1 or Diabetes Mellitus Type 2 HEMATOLOGIC: Positive Blood Disorders and Anemia; Negative Sickle Cell Disease PSYCHO/SOCIAL: Negative Depression, Anxiety or Depression OTHER HISTORY: Positive Blood Transfusions; Negative Hospitalization, Autoimmune Disease, Shingles, Blood Transfusion Reaction, Anesthesia Reactions, MRSA, VRSA, Vancomycin-Resistant Enterococci, Chicken Pox or Cancer Family History FAMILY HISTORY: Positive Family Cardiac Disorders; Negative Family Psychiatric Problems, Family Respiratory Disorders, Family Gastrointestinal Problems, Family Cancer, Family Surgery or Family Anesthesia Reaction Surgical History SURGICAL: Negative Section Social History SMOKING STATUS: Never smoker SECOND HAND EXPOSURE: Yes SUBSTANCE USE: does not use ED Exam General Limitations: Present no limitations General appearance: Present alert and in no apparent distress Head Head exam: Present atraumatic Eye Eye exam: Present normal appearance, PERRL and EOMI ENT ENT exam: Present normal exam, normal oropharynx and mucous membranes moist Neck Neck exam: Present normal inspection, full ROM and trachea midline Chest Chest inspection: Present normal inspection and symmetric chest wall rise Respiratory Respiratory exam: Present normal lung sounds bilaterally Cardiovascular Cardiovascular exam: Present regular rate, normal rhythm and normal heart sounds Abdominal Exam Abdominal exam: Present soft and normal bowel sounds Extremities Exam Extremities exam: Present normal inspection and full ROM Expanded Upper Extremity Exam Shoulder exam: Present tenderness; Absent full ROM Arm exam: Present normal inspection Elbow exam: Present normal inspection Forearm/Wrist exam: Present normal inspection Hand exam: Present normal inspection Back Exam Back exam: Present normal inspection, full ROM and vertebral tenderness Back 1 view image: 2 1. Lumbar back pain with palpation Neurological Exam Neurological exam: Present alert, oriented X3 and CN II-XII intact Psychiatric Psychiatric exam: Present normal affect and normal mood Skin Skin exam: Present warm, dry, intact and normal color Course Quality Measures none Orders Category Date Time Status XR lumbar spine 2-3V Stat Exams 11/16/24 08:56 Completed XR shoulder LT min 2V Stat Exams 11/16/24 08:56 Completed HCG Qualitative,Urine Stat Lab 11/16/24 09:03 Completed Ketorolac Inj [Toradol Inj] Med 11/16/24 09:48 Discontinued 30 mg IM X1 ONE Vital Signs Vital signs: Vital Signs Temperature 98.0 F 11/16/24 08:51 Pulse Rate 92 11/16/24 08:51 Respiratory Rate 18 11/16/24 08:51 Blood Pressure 118/83 11/16/24 08:51 Pulse Oximetry (%) 97 11/16/24 08:51 Oxygen Delivery Method Room Air 11/16/24 08:51 Back Pain / Injury MDM Narrative MDM Narrative:: 29-year-old female with no known medical history presents to the emergency room with a chief complaint of left shoulder pain and lower lumbar pain after falling while trying to change a light bulb. Patient is hemodynamically stable and in no apparent distress Physical examination shows tenderness and pain to the left shoulder. The patient has full range of motion to the shoulder but there is some AC joint tenderness with palpation. Patient also has tenderness to the lumbar area of the spine with palpation X-ray of the shoulder and lumbar back were completed and were negative for any acute findings Patient was discharged and educated to follow-up with primary care provider in the next 24 to 48 hours and return to the emergency room for any evidence of worsening signs or symptoms Patient data External records reviewed:: [facility] previous records Clinical information provided by:: patient Social determinants that could affect healthcare access:: none Patient has the following chronic illnesses:: No chronic illness How is presenting disease/condition affected by chronic disease/condition?: no chronic disease Evaluation data The following diagnostics were reviewed and interpreted by me:: lab results and radiology exam(s) Lab and/or radiology exams considered but not ordered:: Labs and radiology exams considered and ordered Interpretation Summary: Lumbar [id number]: Satisfactory alignment lumbar vertebral bodies No lumbar fracture 6 mm right renal calculus IMPRESSION: No lumbar fracture Left shoulder [id number]: No shoulder fracture or dislocation No opaque foreign body IMPRESSION: No shoulder fracture or dislocation Medications / Prescriptions Medications or Prescriptions considered but not ordered:: No medication given Medication administrations:: Medication Administration History Discontinued Medications Ketorolac Tromethamine (Ketorolac Inj 60 Mg/2 Ml Vial) 30 mg IM X1 ONE Stop: 11/16/24 09:49 Last Admin: 11/16/24 10:22 Dose: 30 mg Documented By: No medication given Consultations Consultation(s) initiated? (list below): No Diagnosis Differential diagnosis back pain/injury: strain of lumbar region and thoracic back pain Most likely diagnosis given after review of the tests above:: Strain of lumbar region Admission Indicated Admission indicated?: not indicated Admission Request Was there a request for admission?: No Disposition Plan Disposition Plan: Discharge Discharge Attestation Discharge Attestation: The patient and all family members were given an opportunity to ask questions and understood the discharge instructions. Discharge instructions specifically effects, indications for sooner follow up or return to the emergency department, and the expected course of current diagnosis. Patient condition: Stable Discharge Plan Plan Patient Disposition: HOME (Self Care) Discharge Disposition comment: Stable Prescriptions/Referrals Prescriptions/Med Rec: No Action epinephrine [EpiPen 2-Nitin] 0.3 mg/0.3 mL auto-injector 0.3 ml subcut .x1 PRN (Reason: hypersensitivity reaction) Qty: 2 0RF Excedrin Tension Headache 500-65 mg tablet 1 tab PO Q6H PRN (Reason: pain) Qty: 30 0RF acetaminophen [Tylenol] 325 mg tablet 650 mg PO Q6H PRN (Reason: fever or pain) Qty: 30 0RF albuterol sulfate 90 mcg/actuation HFA aerosol inhaler 2 puff inhalation Q6H PRN (Reason: shortness of breath or wheezing) Qty: 8.5 0RF azithromycin [Zithromax] 250 mg tablet See Rx Instructions .ROUTE .COMPLEX Qty: 6 0RF Rx Instructions: For 250 mg dose pack: take 500 mg today (day 1), then 250 mg for 4 days (days 2-5) Referrals: Meenakshi Mcdonald MD [Primary Care Provider] - In 1 week Problem List Clinical Impression: Sprain of left shoulder, Lumbar back sprain Patient/Caregiver Discharge Instructions Education Materials: Treating?Strains and Sprains Additional Instructions: Please follow-up with your primary care provider in the next 24 to 48 hours Your x-ray of your shoulder and your lower back were completed and were negative for any acute findings For any evidence of worsening signs or symptoms return to the emergency room immediately Print Language: Samoan Stand Alone Forms: Ktaelin Award Info., Work/School Release, Patient Portal Info Letter DAMIAN/DEWEY Supervising Physician DAMIAN/DEWEY Supervising Physician: Dr. DIANE
[2024-11-16 09:34] LABS: HCG Qualitative,Urine Negative
[2024-11-16] MEDS: KETOROLAC INJ 60 MG/2 ML VIAL 30 MG IM (10:22)
== END 2024-11-16 10:53 | disposition home or self-care (01) ==
PROVIDERS: Emergency Provider Nurse Practitioner Family; PCP Pediatrics Pediatric Critical Care Medicine
DX: S43.402A Unspecified sprain of left shoulder joint, initial encounter (principal); S33.5XXA Sprain of ligaments of lumbar spine, initial encounter; W19.XXXA Unspecified fall, initial encounter
CPT/HCPCS: 72100; 73030; 81025; 96372; 99283; J1885

== ENCOUNTER 2024-12-15 10:41 | Emergency (ER) | payer MEDICAID, SELFPAY ==
--- NOTE | 2024-12-15 10:47 | EKG_ITS ---
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
--- NOTE | 2024-12-15 11:01 | XR_ITS ---
Examination: PA lateral chest 2 views TECHNIQUE: Upright PA lateral chest 2 views Date and time: December 15, 2024 1115 hours INDICATIONS: Upper chest pain 3 days worse today. FINDINGS: Normal heart size. Lungs are clear. The osseous structures are intact IMPRESSION: No active disease
--- NOTE | 2024-12-15 11:01 | PD.EDRME ---
Rapid Medical Screening Exam E Arrival date/time: 12/15/24 10:41 29-year-old female with no known medical history presents to the emergency room with a chief complaint of right sided stabbing sternal chest pain x 3 days. Patient was sent over by her primary care provider. I have greeted and performed a focused initial assessment of this patient. A comprehensive ED assessment and evaluation of the patient, analysis of all test results, and completion of the medical decision making process will be conducted by additional ED providers. Chief Complaint: Shortness of Breath/Dyspnea Vital signs reviewed by provider: Yes
[2024-12-15 11:52] LABS: Basophils # (Auto) 0.0 Thou/mm3 (0.0-0.2); Basophils % (Auto) 0 % (0-2.5); Eosinophils # (Auto) 0.2 Thou/mm3 (0.0-0.5); Eosinophils % (Auto) 4 % (0-10); Hematocrit 41.9 % (36.0-46.0); Hemoglobin 14.7 g/dL (12.0-16.0); Immature Granulocytes Auto 0.02 Thou/mm3 (0.00-0.00); Lymphocytes # (Auto) 2.5 Thou/mm3 (1.0-4.8); Lymphocytes % (Auto) 45 % (10-50); Mean Corpuscular HGB Conc 35.1 g/dl (31.0-37.0); Mean Corpuscular Hemoglobin 30.2 pg (25.0-35.0); Mean Corpuscular Volume 86 fL (80-100); Monocytes # (Auto) 0.3 Thou/mm3 (0.0-0.8); Monocytes % (Auto) 5 % (0-12); Neutrophils # (Auto) 2.5 Thou/mm3 (1.8-7.7); Neutrophils % (Auto) 46 % (37-80); Nucleated Red Blood Cell # 0.00 Thou/mm3 (0.00-0.00); Nucleated Red Blood Cell % 0 /100 WBC (0); Platelet Count 295 Thou/mm3 (140-440); RDW Standard Deviation 39.4 fL (36.4-46.3); Red Blood Count 4.87 Miln/mm3 (4.00-5.20); White Blood Count 5.5 Thou/mm3 (3.6-11.0)
[2024-12-15 12:14] LABS: Collection Type, Urine Clean Catch
[2024-12-15 12:20] LABS: Alanine Aminotransferase 17 U/L (10-49); Albumin, Serum 4.7 gm/dL (3.5-5.0); Albumin/Globulin Ratio 1.6 (1.2-2.2); Alkaline Phosphatase 57 U/L (46-116); Anion Gap 10 (7-16); Aspartate Amino Transferase 20 U/L (0-34); BUN/Creatinine Ratio 9 Ratio (12-20); Bilirubin,Total 0.6 mg/dL (0.3-1.2); Blood Urea Nitrogen 6 mg/dL (9-23); Calcium 9.1 mg/dL (8.3-10.6); Calcium (Corrected) 9.1 mg/dL (8.5-10.1); Carbon Dioxide 27.2 mMol/L (20.0-31.0); Chloride 102 mMol/L (98-107); Creatinine (Component) 0.7 mg/dL (0.6-1.3); Globulin 2.9 gm/dL (2.3-3.5); Glucose 78 mg/dL (74-106); Magnesium 2.1 mg/dL (1.6-2.6); Osmolality,Calculated 274 (275-295); Potassium 3.9 mMol/L (3.4-5.1); Sodium 139 mMol/L (136-145); Total Protein 7.6 gm/dL (5.7-8.2); Troponin I < 0.002 ng/mL (0.0-0.045); eGFR > 60 See Note
[2024-12-15 12:25] LABS: B-Type Natriuretic Peptide 24 pg/mL (0-100)
[2024-12-15 12:26] LABS: Amphetamine/Methamp Scrn,U Negative (Negative); Bacteria,Urine Rare; Barbiturate Screen,Urine Negative (Negative); Benzodiazepines Screen,Urine Negative (Negative); Benzoylecgonine Screen, Ur Negative (Negative); Bilirubin,Urine Negative (Negative); Blood,Urine Negative (Negative); Color,Urine Yellow (Lt Yel-Yel); Culture Indicated,Urine Not Indicated; Fentanyl Screen,Urine Negative (Negative); Glucose, Urine Negative (Negative); Ketones,Urine Negative (Negative); Leukocyte Esterase,Urine Positive (Negative); Nitrite,Urine Negative (Negative); Opiate Screen,Urine Negative (Negative); PH,Urine 6.5 (5.0-7.0); Protein,Urine Trace (Neg - Trace); RBC,Urine 3 /hpf (0-3); Specific Gravity,Urine 1.022 (1.001-1.035); Squamous Epithelial Cell,Urine 18 /hpf (0-5); THC Screen,Urine Negative (Negative); Urobilinogen,Urine Negative mg/dL (0.0-1.0); WBC,Urine 3 /hpf (0-5)
[2024-12-15 12:28] LABS: INR 1.0 (0.9-1.3); Partial Thromboplastin Time 26.2 Seconds (22.0-36.0); Prothrombin Time 10.8 Seconds (9.0-12.2)
[2024-12-15 13:10] LABS: Clarity,Urine Hazy (Clear/Hazy)
[2024-12-15 14:49] VITALS: BP 137/88; RESP 19; TEMP 36.8; O2SAT 97
[2024-12-15 14:50] VITALS: PULSE 78
--- NOTE | 2024-12-15 14:55 | PD.EDSOB ---
ED SOB =RME/HPI General Chief Complaint: Shortness of Breath/Dyspnea Stated Complaint: SOB, R. chest pain X 3 days worse today Time Seen by Provider: 12/15/24 11:25 Arrival date/time: 12/15/24 10:41 RME / HPI RME / HPI Narrative: 12/15/24 10:41 29-year-old female with no known medical history presents to the emergency room with a chief complaint of right sided stabbing sternal chest pain x 3 days. Patient was sent over by her primary care provider. I have greeted and performed a focused initial assessment of this patient. A comprehensive ED assessment and evaluation of the patient, analysis of all test results, and completion of the medical decision making process will be conducted by additional ED providers. DR. DIANE MAIN ED EVALUATION 29 year old female with no stated medical history presents to the ED for evaluation of central chest pain beginning 3 days ago and worsening today. Described as aching in sensation that is aggravated with taking a deep breath or palpating her chest. Additionally complains of subjective fevers, headache and feeling dizzy today. States she tested herself for covid at home that was negative. No other associated symptoms reported. Denies nasal congestion, cough, shortness of breath, abdominal pain, n/v/d, or urinary symptoms. Related Data Previous Rx's ?Medication ?Instructions ?Recorded epinephrine 0.3 mg/0.3 mL 0.3 ml subcut .x1 PRN 07/07/23 injection, auto-injector (EpiPen hypersensitivity reaction #2 ea 2-Nitin) acetaminophen-caffeine 500 mg-65 1 tab PO Q6H PRN pain #30 tabs 01/07/24 mg tablet (Excedrin Tension Headache) acetaminophen 325 mg tablet 650 mg (2 x 325 mg) PO Q6H PRN 03/26/24 (Tylenol) fever or pain #30 tabs albuterol sulfate 90 mcg/actuation 2 puff inhalation Q6H PRN 04/02/24 aerosol inhaler shortness of breath or wheezing #8.5 grams azithromycin 250 mg tablet See Rx Instructions PO .COMPLEX #6 04/02/24 (Zithromax) tabs Allergies Allergy/AdvReac Type Severity Reaction Status Date / Time No Known Allergies Allergy Verified 12/15/24 10:46 Review of Systems Review of Systems Systems Reviewed: All systems reviewed, normal except as documented Past Medical History Past Medical History GASTROINTESTINAL: Positive Gastrointestinal Disorders and Obesity GENITOURINARY: Positive Genitourinary Disorders and Kidney Stones REPRODUCTIVE: Positive Previous Pregnancies (9) HEMATOLOGIC: Positive Blood Disorders and Anemia OTHER HISTORY: Positive Blood Transfusions Family History FAMILY HISTORY: Positive Family Cardiac Disorders Social History SMOKING STATUS: Never smoker SECOND HAND EXPOSURE: Yes SUBSTANCE USE: does not use ED Exam Narrative Physical exam: GENERAL APPEARANCE:? alert and oriented x 4, well-developed, well-nourished, no acute distress HEENT: normocephalic, atraumatic NECK: supple LUNGS: no respiratory distress, normal effort HEART: good peripheral perfusion ABDOMEN: non distended EXTREMITIES:? atraumatic NEUROLOGIC: awake; alert and oriented x4; cranial nerves II-XII grossly intact PSYCHIATRIC:? appropriate mood and affect SKIN: warm, dry, normal color; no rashes Course Quality Measures none Orders Category Date Time Status Bedside COVID-19 Antigen Test NOW Care 12/15/24 14:54 Active Bedside Influenza A&B Antigen Test NOW Care 12/15/24 14:54 Completed EKG (ED ONLY) *Do not use* NOW Care 12/15/24 10:47 Completed EKG (ED Only) Stat Exams 12/15/24 10:47 Draft XR chest 2V Stat Exams 12/15/24 11:01 Completed B-Type Natriuretic Peptide Stat Lab 12/15/24 11:30 Completed CBC Stat Lab 12/15/24 11:30 Completed Comprehensive Metabolic Panel Stat Lab 12/15/24 11:30 Completed Drug Screen,Urine Stat Lab 12/15/24 12:07 Completed HCG Qualitative,Urine Stat Lab 12/15/24 12:07 Completed Magnesium Stat Lab 12/15/24 11:30 Completed Partial Thromboplastin Time Stat Lab 12/15/24 11:30 Completed Prothrombin Time with INR Stat Lab 12/15/24 11:30 Completed Troponin I Stat Lab 12/15/24 11:30 Completed Urinalysis, C/S if Indicated Stat Lab 12/15/24 12:07 Completed Ketorolac Inj [Toradol Inj] Med 12/15/24 16:08 Discontinued 30 mg IM X1 ONE Meclizine HCl [Antivert] Med 12/15/24 16:08 Discontinued 25 mg PO X1 ONE Vital Signs Vital signs: Vital Signs Temperature 98.3 F 12/15/24 14:49 Respiratory Rate 19 12/15/24 14:49 Blood Pressure 137/88 H 12/15/24 14:49 Pulse Oximetry (%) 97 12/15/24 14:49 Oxygen Delivery Method Room Air 12/15/24 14:49 Pulse ox is 97% on room air which is adequate. Shortness of Breath / Dyspnea MDM Narrative MDM Narrative:: Jordana Westbrook am scribing for and in the presence of Dr. Diane. Patient data External records reviewed:: [facility] previous records (I reviewed ED visit on 11/16/2024 ) Clinical information provided by:: patient Social determinants that could affect healthcare access:: none Patient has the following chronic illnesses:: None reported How is presenting disease/condition affected by chronic disease/condition?: no chronic disease Evaluation data The following diagnostics were reviewed and interpreted by me:: lab results, radiology exam(s) and EKG tracing(s) (EKG at 10:55 AM sinus rhythm with frequent PVCs, rate 90, no STEMI. ) Lab and/or radiology exams considered but not ordered:: None Interpretation Summary: Ordering Physician: Bandar Tello Date of Service: 12/15/24 Procedure(s): XR chest 2V Accession Number(s): [id number] cc: Bandar Tello; Anthony Montiel MD; Shawn Corey MD~ Examination: PA lateral chest 2 views TECHNIQUE: Upright PA lateral chest 2 views Date and time: December 15, 2024 1115 hours INDICATIONS: Upper chest pain 3 days worse today. FINDINGS: Normal heart size. Lungs are clear. The osseous structures are intact IMPRESSION: No active disease Dictated By: Anthony Montiel MD Signed By: <Electronically signed by Anthony Montiel MD in OV> 12/15/24 1139 Medications / Prescriptions Medications or Prescriptions considered but not ordered:: None Medication administrations:: Medication Administration History Discontinued Medications Ketorolac Tromethamine (Ketorolac Inj 30 Mg/Ml Vial) 30 mg IM X1 ONE Stop: 12/15/24 16:09 Meclizine HCl (Meclizine Hcl 25 Mg Tablet) 25 mg PO X1 ONE Stop: 12/15/24 16:09 See above Consultations Consultation(s) initiated? (list below): No Diagnosis Shortness of Breath Differential Diagnosis: community acquired pneumonia and other (viral illness, costochondritis ) Most likely diagnosis given after review of the tests above:: Anterior chest wall pain Dizziness Admission Indicated Admission indicated?: not indicated Admission Request Was there a request for admission?: No Disposition Plan Disposition Plan: Discharge Discharge Attestation Discharge Attestation: The patient and all family members were given an opportunity to ask questions and understood the discharge instructions. Discharge instructions specifically effects, indications for sooner follow up or return to the emergency department, and the expected course of current diagnosis. Patient condition: Stable Discharge Plan Plan Patient Disposition: HOME (Self Care) Prescriptions/Referrals Prescriptions/Med Rec: No Action epinephrine [EpiPen 2-Nitin] 0.3 mg/0.3 mL auto-injector 0.3 ml subcut .x1 PRN (Reason: hypersensitivity reaction) Qty: 2 0RF Excedrin Tension Headache 500-65 mg tablet 1 tab PO Q6H PRN (Reason: pain) Qty: 30 0RF acetaminophen [Tylenol] 325 mg tablet 650 mg PO Q6H PRN (Reason: fever or pain) Qty: 30 0RF albuterol sulfate 90 mcg/actuation HFA aerosol inhaler 2 puff inhalation Q6H PRN (Reason: shortness of breath or wheezing) Qty: 8.5 0RF azithromycin [Zithromax] 250 mg tablet See Rx Instructions .ROUTE .COMPLEX Qty: 6 0RF Rx Instructions: For 250 mg dose pack: take 500 mg today (day 1), then 250 mg for 4 days (days 2-5) Referrals: Shawn Corey MD [Primary Care Provider, Family Practice] - In 1 week Problem List Clinical Impression: Anterior chest wall pain, Dizziness Patient/Caregiver Discharge Instructions Education Materials: ED Chest Wall Pain, Costochondritis, ED Dizziness, Uncertain Cause Print Language: Hungarian Stand Alone Forms: Katelin Award Info., Patient Portal Info Letter
[2024-12-15 15:33] LABS: HCG Qualitative,Urine Negative
[2024-12-15 16:07] VITALS: BP 137/100; PULSE 83; RESP 17; TEMP 36.6; O2SAT 97
[2024-12-15] MEDS: MECLIZINE HCL 25 MG TABLET PO (16:29)
[2024-12-15] MEDS: KETOROLAC INJ 30 MG/ML VIAL IM (16:30)
[2024-12-15 16:31] VITALS: BP 112/97; PULSE 91; RESP 16; TEMP 36.4; O2SAT 97; BMI 36.5
--- NOTE | 2024-12-15 16:50 | PC.NURSE ---
PT REPORTS PAIN IMPROVE WITH A RATING OF 5/10 FOR HER R CHEST PAIN AFTER ADMINISTRATION OF TORADOL IM.
== END 2024-12-15 16:52 | disposition home or self-care (01) ==
PROVIDERS: Nurse Practitioner Family; Emergency Provider Emergency Medicine; PCP Family Medicine
DX: R07.89 Other chest pain (principal); R42 Dizziness and giddiness; I49.3 Ventricular premature depolarization
CPT/HCPCS: 36415; 71046; 80053; 80307; 81001; 81025; 83735; 83880; 84484; 85025; 85610; 85730; 87400; 87811; 93005; 96372; 99283; J1885; A9270

== ENCOUNTER 2025-01-13 20:41 | Emergency (ER) | payer OTHER, SELFPAY ==
[2025-01-13 20:42] VITALS: BMI 35.2
[2025-01-13 20:47] VITALS: BP 130/75; PULSE 93; RESP 18; TEMP 36.9; O2SAT 96
--- NOTE | 2025-01-13 20:59 | XR_ITS ---
EXAMINATION: Left knee 3 views TECHNIQUE: AP oblique lateral left knee 3 views Date and time: January 13, 2025, 2113 hours INDICATIONS: Twisting injury to the knee today, knee pain. FINDINGS: No fracture or dislocation Small knee effusion No foreign body IMPRESSION: No acute fracture
--- NOTE | 2025-01-13 21:00 | PD.EDLOWEX ---
Lower Extremity Injury RME/HPI General Chief Complaint: Extremity Problem,Nontraumatic Stated Complaint: LEFT KNEE POPPED, LEFT LEG/KNEE PAIN Time Seen by Provider: 01/13/25 20:58 Arrival date/time: 01/13/25 20:41 29F with history of anemia presents to ED with L knee pain after it popped while she was moving something at work. Limitations: no limitations Related Data Previous Rx's ?Medication ?Instructions ?Recorded epinephrine 0.3 mg/0.3 mL 0.3 ml subcut .x1 PRN 07/07/23 injection, auto-injector (EpiPen hypersensitivity reaction #2 ea 2-Nitin) acetaminophen-caffeine 500 mg-65 1 tab PO Q6H PRN pain #30 tabs 01/07/24 mg tablet (Excedrin Tension Headache) acetaminophen 325 mg tablet 650 mg (2 x 325 mg) PO Q6H PRN 03/26/24 (Tylenol) fever or pain #30 tabs albuterol sulfate 90 mcg/actuation 2 puff inhalation Q6H PRN 04/02/24 aerosol inhaler shortness of breath or wheezing #8.5 grams azithromycin 250 mg tablet See Rx Instructions PO .COMPLEX #6 04/02/24 (Zithromax) tabs Allergies Allergy/AdvReac Type Severity Reaction Status Date / Time No Known Allergies Allergy Verified 01/13/25 20:42 Review of Systems Review of Systems Systems Reviewed: All systems reviewed, normal except as documented Musculoskeletal Musculoskeletal: Reports as per HPI and Reports arthralgias Past Medical History Past Medical History NEUROLOGIC: Negative Neurological Disorders or Seizures CARDIAC: Negative Cardiac Disorders, Congestive Heart Failure, Hypertension or Hypotension RESPIRATORY: Negative Chronic Obstructive Pulmonary Disease (COPD) or Asthma GASTROINTESTINAL: Positive Gastrointestinal Disorders and Obesity; Negative Gastroesophageal Reflux Disease GENITOURINARY: Positive Genitourinary Disorders and Kidney Stones; Negative Renal Disease REPRODUCTIVE: Positive Previous Pregnancies MUSCULOSKELETAL: Negative Musculoskeletal Disorders or Scoliosis ENDOCRINE: Negative Endocrine Disorders, Diabetes Mellitus Type 1 or Diabetes Mellitus Type 2 HEMATOLOGIC: Positive Blood Disorders and Anemia; Negative Sickle Cell Disease PSYCHO/SOCIAL: Negative Depression, Anxiety or Depression OTHER HISTORY: Positive Blood Transfusions; Negative Hospitalization, Autoimmune Disease, Shingles, Blood Transfusion Reaction, Anesthesia Reactions, MRSA, VRSA, Vancomycin-Resistant Enterococci, Chicken Pox or Cancer Family History FAMILY HISTORY: Positive Family Cardiac Disorders; Negative Family Psychiatric Problems, Family Respiratory Disorders, Family Gastrointestinal Problems, Family Cancer, Family Surgery or Family Anesthesia Reaction Surgical History SURGICAL: Negative Section Social History SMOKING STATUS: Never smoker SECOND HAND EXPOSURE: Yes SUBSTANCE USE: does not use ED Exam General Limitations: Present no limitations General appearance: Present alert and in no apparent distress Head Head exam: Present atraumatic Neck Neck exam: Present normal inspection, full ROM and trachea midline Chest Chest inspection: Present normal inspection and symmetric chest wall rise Expanded Lower Extremity Exam Knee exam: Present swelling (L) Neurological Exam Neurological exam: Present alert and oriented X3 Psychiatric Psychiatric exam: Present normal affect and normal mood Skin Skin exam: Present warm, dry, intact and normal color Course Quality Measures none Orders Category Date Time Status Crutches .NOW Care 01/13/25 20:59 Active XR knee LT 3V Stat Exams 01/13/25 20:59 Completed Naproxen [Naprosyn] Med 01/13/25 21:01 Discontinued 500 mg PO X1 ONE Vital Signs Vital signs: Vital Signs Temperature 98.5 F 01/13/25 20:47 Pulse Rate 93 01/13/25 20:47 Respiratory Rate 18 01/13/25 20:47 Blood Pressure 130/75 01/13/25 20:47 Pulse Oximetry (%) 96 01/13/25 20:47 Oxygen Delivery Method Room Air 01/13/25 20:47 O2 at 96% on RA and WNLs Extremity Injury, Lower MDM Narrative MDM Narrative:: 29F with history of anemia presents to ED with L knee pain after it popped while she was moving something at work. Physical exam reveals L knee swelling. Reduced ROM. Patient is afebrile, calm, and alert. XR no fx. Given ELIE, crutches, meds, and extension course counselor. Patient data External records reviewed:: [facility] previous records Clinical information provided by:: patient Social determinants that could affect healthcare access:: none Patient has the following chronic illnesses:: anemia How is presenting disease/condition affected by chronic disease/condition?: uneffected by Evaluation data The following diagnostics were reviewed and interpreted by me:: radiology exam(s) Lab and/or radiology exams considered but not ordered:: ordered Interpretation Summary: above Medications / Prescriptions Medications or Prescriptions considered but not ordered:: ordered Medication administrations:: Medication Administration History Discontinued Medications Naproxen (Naproxen 250 Mg Tablet) 500 mg PO X1 ONE Stop: 01/13/25 21:02 Last Admin: 01/13/25 21:28 Dose: 500 mg Documented By: GATITO above Consultations Consultation(s) initiated? (list below): No Diagnosis Extremity Injury, Lower Differential Diagnosis: ankle sprain and strain, acute internal derangement of knee, puncture wound of foot, fracture of toe and ankle fracture Most likely diagnosis given after review of the tests above:: acute internal derangement of knee Admission Indicated Admission indicated?: not indicated Admission Request Was there a request for admission?: No Disposition Plan Disposition Plan: Discharge Discharge Attestation Discharge Attestation: The patient and all family members were given an opportunity to ask questions and understood the discharge instructions. Discharge instructions specifically effects, indications for sooner follow up or return to the emergency department, and the expected course of current diagnosis. Patient condition: Stable Discharge Plan Plan Patient Disposition: HOME (Self Care) Discharge Disposition comment: Stable Prescriptions/Referrals Prescriptions/Med Rec: No Action epinephrine [EpiPen 2-Nitin] 0.3 mg/0.3 mL auto-injector 0.3 ml subcut .x1 PRN (Reason: hypersensitivity reaction) Qty: 2 0RF Excedrin Tension Headache 500-65 mg tablet 1 tab PO Q6H PRN (Reason: pain) Qty: 30 0RF acetaminophen [Tylenol] 325 mg tablet 650 mg PO Q6H PRN (Reason: fever or pain) Qty: 30 0RF albuterol sulfate 90 mcg/actuation HFA aerosol inhaler 2 puff inhalation Q6H PRN (Reason: shortness of breath or wheezing) Qty: 8.5 0RF azithromycin [Zithromax] 250 mg tablet See Rx Instructions .ROUTE .COMPLEX Qty: 6 0RF Rx Instructions: For 250 mg dose pack: take 500 mg today (day 1), then 250 mg for 4 days (days 2-5) Referrals: Meenakshi Mcdonald MD [Primary Care Provider] - In 1 week Problem List Clinical Impression: Internal derangement of knee Patient/Caregiver Discharge Instructions Education Materials: How Your Knee Works Additional Instructions: Please follow-up with PCP within 24-48 hours and return immediately if symptoms worsen. If problem persists, recommend outpatient PT and/or MRI follow-up. In the meantime, rest, use ice/heat, and/or compression. Print Language: Trinidadian Stand Alone Forms: Patient Portal Info Letter PA/BLUEPRINT DEVELOPER Supervising Physician PA/BLUEPRINT DEVELOPER Supervising Physician: Dr. Ontiveros
[2025-01-13] MEDS: NAPROXEN 250 MG TABLET 500 MG PO (21:28)
[2025-01-13 22:15] VITALS: BP 141/82; PULSE 94; RESP 17; TEMP 36.7; O2SAT 97
== END 2025-01-13 22:17 | disposition home or self-care (01) ==
PROVIDERS: Emergency Provider Emergency Medicine; PCP Pediatrics Pediatric Critical Care Medicine
DX: M23.92 Unspecified internal derangement of left knee (principal)
CPT/HCPCS: 73562; 99284; A9270